=== PATIENT | male | born 1970 | race Caucasian/White ===

== ENCOUNTER 2019-04-23 18:51 | Emergency (ER) | payer SELFPAY ==
[~2019-04-23] VITALS: Ht 175.3 cm; Wt 84.1 kg
[2019-04-23 21:16] LABS: EOS # 0.1 (0.04-0.40); EOS % 2.1 % (0.0-4.0); HEMATOCRIT 46.4 % (42.0-52.0); HEMOGLOBIN 16.2 g/dL (13.5-18.0); LYMPH# 1.9 (1.50-4.00); MEAN CELL VOLUME 80 fl (78-100); MEAN CORPUSCULAR HEMOGLOBIN 28 pg (27-31); MEAN CORPUSCULAR HGB CONC 35 g/dL (33-37); MEAN PLATELET VOLUME 9.4 fl (7.4-10.4); MONO # 0.7 (0.20-0.80); NEU # 3.6 (1.40-6.50); PLATELET COUNT 302 K/mm3 (130-400); RED BLOOD COUNT 5.79 M/mm3 (4.20-5.60); WHITE BLOOD COUNT 6.3 K/mm3 (4.8-10.8)
[2019-04-23 21:27] LABS: ALBUMIN 4.3 g/dL (3.5-5.0)
[2019-04-23 21:28] LABS: CALCIUM 9.4 mg/dL (8.3-10.5)
[2019-04-23 21:29] LABS: TOTAL PROTEIN 7.3 g/dL (6.4-8.3)
[2019-04-23 21:31] LABS: TOTAL BILIRUBIN 0.4 mg/dL (0.2-1.2)
[2019-04-23] MEDS ORDERED: NORCO 325 MG-51 TA1 PO (21:55)
[2019-04-23 21:59] VITALS: BP 137/74
== END 2019-04-23 22:04 | disposition home or self-care (01) ==
LOC: ED 18:51
PROVIDERS: Family Medicine
DX: M25.511 Pain in right shoulder (principal); R10.13 Epigastric pain; J44.9 Chronic obstructive pulmonary disease, unspecified; F17.210 Nicotine dependence, cigarettes, uncomplicated